=== PATIENT | male | born 1990 | race Caucasian/White ===

== ENCOUNTER 2017-01-18 14:25 | Outpatient (CLI) | payer OTHER ==
--- NOTE | 2017-01-25 17:27 | DIAGNOSTIC IMAGING REPORT ---
PROCEDURE: XR SHOULDER INJECTION (PRE MR) INDICATION: Right shoulder pain. Possible labral tear. TECHNIQUE: The patient was advised of the usual risks and complications including infection, bleeding and allergy. Supine RPO position. Following sterile preparation and 1% lidocaine anesthetic, fluoroscopic guidance (4.2 minutes, 1272.88 mGy) was utilized to place a 22-gauge spinal needle into the ventral right glenohumeral joint. A 10.1 mL solution (2.5 mL Isovue 200, 2.5 mL 1% lidocaine, 2.5 mL 0.5% Marcaine, 2.5 mL normal saline, 0.1 mL gadolinium) was injected. COMPARISON: None. FINDINGS: Six AP views in neutral, internal and external rotation. Initially, contrast appeared to extravasate into the adjacent muscles. Because of this, the needle was adjusted on multiple occasions, and there appeared to be some contrast in the glenohumeral joint. Based on this, it was decided to inject 2 mL 40 mg/mL Kenalog into the joint. The needle was subsequently withdrawn. The patient tolerated the procedure reasonably well and was transferred to MRI in satisfactory condition with instructions to resume routine activity the following day, and to call for any untoward symptoms (increasing pain/swelling). IMPRESSION: 1. Limited arthrogram of the right shoulder with contrast extravasation. 2. MRI will be attempted to assess if some contrast is within the glenohumeral joint.
--- NOTE | 2017-01-25 17:33 | DIAGNOSTIC IMAGING REPORT ---
PROCEDURE: MR UPPER EXT JOINT W/CONT-RT (failed examination). INDICATION: RIGHT SHOULDER LABRUM TEAR TECHNIQUE: Contrast/gadolinium was inject earlier in the day. Multiple sequences were obtained. COMPARISON: Comparison is made to arthrogram earlier today (01/18/2017) FINDINGS: There is suboptimal contrast in the glenohumeral joint with contrast extravasation ventrally. IMPRESSION: 1. Failed examination (MR arthrogram of the right shoulder). 2. The patient will not be charged for this study and he will be rescheduled to return for repeat study at a later date. 3. Findings discussed with the patient and called to Dr. Mendez.
== END 2017-01-18 23:00 ==
LOC: XR SRH 14:25
DX: S43.431A Superior glenoid labrum lesion of right shoulder, initial encounter (principal); Z53.8 Procedure and treatment not carried out for other reasons

== ENCOUNTER 2017-01-25 13:15 | Outpatient (CLI) | payer OTHER ==
--- NOTE | 2017-01-25 17:36 | DIAGNOSTIC IMAGING REPORT ---
PROCEDURE: XR SHOULDER INJECTION (PRE MR) INDICATION: Right shoulder pain. Possible labral tear. TECHNIQUE: The patient add undergone attempted right shoulder arthrogram on 01/18/2017 which was unsuccessful. He returns for reattempted procedure. The patient was advised of the usual risks and complications including infection, bleeding and allergy. Supine RPO position. Following sterile preparation and 1% lidocaine anesthetic, fluoroscopic guidance (4.2 minutes, 775.51 mGy) was utilized to place a 22-gauge spinal needle into the ventral right glenohumeral joint. A 10.1 mL solution (2.5 mL Isovue 200, 2.5 mL 1% lidocaine, 2.5 mL 0.5% Marcaine, 2.5 mL normal saline, 0.1 mL gadolinium) was infused. Subsequently, 2 mL 40 mg/mL Kenalog was infused and the needle was withdrawn. COMPARISON: Comparison is made to prior attempted arthrogram on 01/18/2017. FINDINGS: Seven AP views in neutral, internal and external rotation. Confirmation of intraarticular injection. Arthrogram is normal. The patient tolerated the procedure reasonably well and was transferred to MRI in satisfactory condition with instructions to resume routine activity the following day, and to call for any untoward symptoms (increasing pain/swelling). IMPRESSION: 1. Successful fluoroscopically guided diagnostic/therapeutic injection of the right glenohumeral joint (pre MRI). 2. Negative arthrogram of the right shoulder. 3. MR arthrography is pending.
--- NOTE | 2017-01-26 08:59 | DIAGNOSTIC IMAGING REPORT ---
PROCEDURE: MR UPPER EXT JOINT W/CONT-RT INDICATION: Right shoulder pain. Possible labral tear. TECHNIQUE: Intraarticular contrast/gadolinium injected earlier in the day. PD, FAT-SAT PD, and FAT-SAT T1 sagittal oblique images. PD, FAT-SAT PD, and FAT-SAT T1 coronal oblique images. T1, FAT-SAT T1, and gradient axial images. COMPARISON: Comparison is made to images from a failed MR arthrogram on 01/18/2017. FINDINGS: There is mild caudal and positive angulation of type 2 acromion, and mild arthritic changes of the right acromioclavicular joint. These changes result in mild impingement with mild cystic impaction changes of the posterior lateral humeral head. No evidence of coracoid impingement (18 mm). There is moderate to marked tendinosis of the subscapularis tendon and horizontal segment of the biceps tendon, with moderate tendinosis of the supraspinatus tendon. N no evidence of rotator cuff tear. There is a tear of the superior cartilaginous labrum (SLAP lesion). The rest of the labrum is normal. There is a type 3 anterior capsular attachment with moderate fluid in the subscapular recess. Middle glenohumeral ligament is atrophic or absent. Inferior glenohumeral ligament is normal. There is indistinctness and edema of the superior glenohumeral ligament. IMPRESSION: 1. 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 2. Moderate to marked tendinosis of the rotator cuff (subscapularis, horizontal biceps tendon, supraspinatus tendon), but no evidence of rotator cuff tear. 3. There is a tear of the superior cartilaginous labrum (SLAP lesion). 4. There is a type 3 anterior capsular attachment with atrophy / absence of the middle glenohumeral ligament, and indistinctness of the superior glenohumeral ligament (suggests possible instability or at risk for dislocation).
== END 2017-01-25 23:00 ==
LOC: XR SRH 13:15
PROC: BP181ZZ Fluoroscopy of Right Shoulder using Low Osmolar Contrast (ICD-10-PCS; principal; 2017-01-25)
DX: S43.431A Superior glenoid labrum lesion of right shoulder, initial encounter (principal); M75.41 Impingement syndrome of right shoulder; M75.81 Other shoulder lesions, right shoulder; R93.7 Abnormal findings on diagnostic imaging of other parts of musculoskeletal system